=== PATIENT | male | born 1965 | race African-American/Black ===

== ENCOUNTER 2019-06-11 08:57 | Day surgery (SDC) | payer OTHER ==
--- NOTE | 2019-04-17 10:56 | HP ---
DATE OF ADMISSION: 06/11/2019 HISTORY: This is a 53-year-man admitted to the hospital for open repair of recurrent left inguinal hernia with mesh. The patient had apparently undergone a laparoscopic left repair in 2005. He went on to develop a recurrence several years ago. He presents now for definitive management. The patient has no underlying GI, or respiratory complaints to suggest a predisposition to hernia formation. PAST MEDICAL HISTORY: Significant for GERD, hypertension, hypercholesterolemia and eye disease. PAST SURGICAL HISTORY: Significant for laparoscopic left inguinal hernia repair in 2005. He has also had a multitude of eye surgeries between 2013 and 2015. ALLERGIES: RAMIPRIL. CURRENT MEDICATIONS: ProAir, Advair, simvastatin, Zyrtec, Edarbi. SOCIAL HISTORY: Negative for tobacco. The patient smoked up until 2006. Occasional alcohol. FAMILY HISTORY: Father with history of COPD, diabetes, kidney disease and cardiac disease. Mother with a history of kidney disease. One sibling with diabetes, heart disease, COPD. REVIEW OF SYSTEMS: Otherwise nil. PHYSICAL EXAMINATION: The abdomen is examined in the erect spine position. There is an obvious recurrent hernia at the level of the left groin. The right groin is intact with no herniation. The testes are unremarkable. IMPRESSION: Recurrent left inguinal hernia. PLAN: Open repair, recurrent left inguinal hernia with mesh. Indications, alternatives and possible complications were reviewed. Consent was obtained. The patient was seen preoperatively by Dr. Wagner Hoover. Please refer to his notes for those details. RORY LEZAMA M.D. [id number] cc: Wagner Hoover MD
[2019-06-11] MEDS ORDERED: TAMSULOSIN HCL 0.4 MG CAP ONE (09:28)
[2019-06-11 09:48] VITALS: BMI 27.3
[2019-06-11] MEDS ORDERED: MIDAZOLAM HCL 2 MG/2 ML SINGLE DOSE VIAL ONE (10:43)
[2019-06-11] MEDS ORDERED: ROPIVACAINE HCL 0.5% 30ML VIAL ONE (10:43)
[2019-06-11] MEDS ORDERED: SCOPOLAMINE HYDROBROMIDE 1 PATCH PATCH.TD72 ONE (11:15)
[2019-06-11] MEDS ORDERED: PROPOFOL 20 ML ONE (11:18)
[2019-06-11] MEDS ORDERED: fentaNYL CITRATE 250 MCG/5 ML VIAL ONE (11:18)
[2019-06-11] MEDS ORDERED: BUPIVACAINE HCL/PF 0.5% (5MG/ML) 10 ML VIAL ONE (11:26)
[2019-06-11] MEDS ORDERED: NEOSTIGMINE METHYLSULFATE 0.5 MG/ML - 10 ML MDV ONE (12:46)
[2019-06-11] MEDS ORDERED: GLYCOPYRROLATE 0.2 MG/1 ML VIAL ONE (12:47)
[2019-06-11] MEDS ORDERED: oxyCODONE HCL 5 MG TABLET PO PRN ×2 (13:15)
[2019-06-11] MEDS ORDERED: ONDANSETRON 4 MG/2 ML VIAL IVPUSH PRN (13:15)
[2019-06-11] MEDS ORDERED: LACTATED RINGERS SOLUTION 1,000 ML IV SCH (13:15)
[2019-06-11] MEDS ORDERED: PROMETHAZINE HCL 25 MG/1 ML VIAL ONE (14:10)
[2019-06-11] MEDS ORDERED: PROMETHAZINE HCL 25 MG/1 ML VIAL IVPUSH ONE (14:47)
[2019-06-11] MEDS ORDERED: oxyCODONE HCL 5 MG TABLET ONE (15:03)
[2019-06-11 18:06] VITALS: TEMP 98
[2019-06-11 18:07] VITALS: BP 121/74; PULSE 85
--- NOTE | 2019-06-12 06:00 | OP ---
DATE OF OPERATION: 06/11/2019 PREOPERATIVE DIAGNOSIS: Recurrent left inguinal hernia. POSTOPERATIVE DIAGNOSIS: Recurrent left inguinal hernia. PROCEDURE: Open repair of recurrent left inguinal hernia with mesh. OPERATING SURGEON: Yoni Steiner MD UNEMPLOYMENT SPECIALIST: Troy Burden MD ANESTHESIA: General, Nino Hamm MD HISTORY: A 54-year-old man who states that he had undergone a laparoscopic left inguinal hernia repair with mesh in 2005. He states he had developed a recurrence shortly thereafter. He presents at this juncture for repair of his left inguinal hernia. Indications, alternatives, possible complications reviewed. Consent obtained. DESCRIPTION OF PROCEDURE: With the patient in the supine position, and after general anesthesia, the left groin was prepped and draped in the usual sterile fashion using Betadine. There were small scars about the lower abdominal wall consistent with prior laparoscopic surgery. An 8-cm left groin incision was made between the left pubic tubercle and the left anterior iliac spine. The incision was deepened into the subcutaneous space. All identified vessels in the subcutaneous space were clamped, divided and ligated. The external oblique aponeurosis was opened in the direction of its fibers, through the external ring. The underlying ilioinguinal nerve was identified and spared. The split external oblique aponeurosis was swept clean to the level of the pubic tubercle. At the pubic tubercle, [place] drain was placed around the cord structures. Exploration of the cord revealed a sliding, indirect component. The sac and contents were from the cord structures, exercising care not to injure the vas or its vascular component. The sac and fibrofatty contents were mobilized below the preperitoneal fat and inferior epigastric vessels. The hernia was reduced. Now, directing our attention to the inguinal floor, there was complete attenuation of the transversalis fascia. The transversalis fascia was split throughout its entire length. Palpating the surgical site failed to reveal evidence of a previously placed mesh. The possibility of the patient having had a laparoscopic right repair and being confused was considered. The possibility of him having a laparoscopic procedure in 2005 with no placement of the mesh was also considered. Nonetheless, a Davol plug was placed in the preperitoneal space and fanned out under the deep musculature where it was tacked in place circumferentially with 2-0 Prolene sutures. The attenuated transversalis fascia was imbricated in 2 layers over the Davol plug, leaving the plug entirely in the preperitoneal space. This was accomplished with continuous 2-0 Prolene suture, beginning at the pubic tubercle, progressing superiorly and reconstructing the internal ring with only a fingertip entrance, and returning to the pubic tubercle where it was tied to itself. A piece of ProGrip mesh was fashioned to cover the entire inguinal floor and placed appropriately as well as brown-holing the mesh where it was wrapped around the cord at the internal ring, buttressing the internal ring. No sutures were placed. The cord and nerve were returned to their anatomic positions. The overlying external oblique aponeurosis was closed in a continuous fashion using 3-0 Vicryl suture material. After adequate hemostasis, the wound was closed in layers. Ana Luisa fascia was approximated with 3-0 Vicryl sutures. The subcutaneous tissues were approximated using interrupted 3-0 chromic sutures. The subcuticular layer was approximated using interrupted 4-0 Biosyn sutures in a continuous fashion. Dermabond was applied. Procedure was terminated. Instrument and sponge counts were correct. ESTIMATED BLOOD LOSS: Minimal. SPECIMENS: None. DRAINS: None. Patient tolerated the procedure well and the procedure was terminated. Marilou [id number] [email or web address]
== END 2019-06-11 18:40 | disposition home or self-care (01) ==
LOC: FASU 08:57
PROVIDERS: ATTEND Surgery
PROC: 0YU60JZ Supplement Left Inguinal Region with Synthetic Substitute, Open Approach (ICD-10-PCS; principal; 2019-06-11 10:30)
DX: K40.91 Unilateral inguinal hernia, without obstruction or gangrene, recurrent (principal)
CPT/HCPCS: 94760

== ENCOUNTER 2021-06-22 07:45 | Day surgery (SDC) | payer OTHER ==
[2021-06-15 15:18] VITALS: BMI 26.6
[2021-06-22 09:40] VITALS: PULSE 65; TEMP 98.4
[2021-06-22 10:04] VITALS: BP 110/65
== END 2021-06-22 10:30 | disposition home or self-care (01) ==
LOC: FASU-ENDO 07:45
PROVIDERS: ATTEND Internal Medicine Gastroenterology
PROC: 0DJD8ZZ Inspection of Lower Intestinal Tract, Via Natural or Artificial Opening Endoscopic (ICD-10-PCS; principal; 2021-06-22 09:10)
DX: Z12.11 Encounter for screening for malignant neoplasm of colon (principal); Z80.0 Family history of malignant neoplasm of digestive organs; K57.30 Diverticulosis of large intestine without perforation or abscess without bleeding

== ENCOUNTER 2021-12-30 11:38 | Emergency (ER) | payer OTHER ==
[2021-12-30 11:48] VITALS: BMI 28.4
[2021-12-30] MEDS ORDERED: BEBTELOVIMAB (EUA) 175 MG/2 ML VIAL IVPUSH ONE (12:33)
[2021-12-30 14:18] VITALS: BP 124/79; PULSE 62; TEMP 97.6
== END 2021-12-30 14:19 | disposition home or self-care (01) ==
LOC: JCOVINFU 11:38
DX: U07.1 COVID-19 (principal)
CPT/HCPCS: 99284-25; M0222; Q0222